=== PATIENT | female | born 1930 | race African-American/Black ===

== ENCOUNTER 2020-12-21 12:48 | Inpatient (IN) | payer MEDICARE, MEDICAID ==
[~2020-12-21] VITALS: Ht 160 cm; Wt 60.8 kg
[~2020-12-21 12:48] MED LIST: HYDR12.54 PO; METO25TA6 PO; MIRT-89 PO
[2020-12-21] MEDS ORDERED: SODIUM CHLORIDE 0.9% 1,000 ML IV ONE (13:15)
[2020-12-21 15:15] LABS: BASOPHILS % 0.5 % (0.0-2.0); EOSINOPHILS % 0.9 % (0.0-5.0); HEMATOCRIT. 34.4 % (36.0-48.0); HEMOGLOBIN. 11.3 g/dL (12.0-16.0); LYMPHOCYTES % 27.8 % (20.0-50.0); MEAN CORPUSCULAR HEMOGLOBIN 30.6 pg (28.0-32.0); MEAN CORPUSCULAR VOLUME 93.3 fL (81.0-99.0); MONOCYTES % 6.7 % (2.0-8.0); NEUTROPHILS % 64.1 % (40.0-76.0); PLATELET 394 x1000/uL (130-400); RED BLOOD CELL COUNT 3.68 mill/uL (4.2-5.4)
[2020-12-21 15:20] LABS: CHLORIDE 106 mEq/L (98-107)
[2020-12-21 16:46] LABS: CLARITY URINE TURBID (CLEAR); COLOR URINE ORANGE (YELLOW); KETONES URINE TRACE (NEGATIVE); LEUKOCYTE ESTERASE URINE 3+ (NEGATIVE); NITRITE URINE POSITIVE (NEGATIVE); OCCULT BLOOD URINE 3+ (NEGATIVE); PH URINE 5.5 (4.5-8.0); PROTEIN URINE 3+ (NEGATIVE); SPECIFIC GRAVITY URINE 1.023 (1.005-1.030)
[2020-12-21] MEDS ORDERED: CEFTRIAXONE 1 G PREMIX 50 ML IV ONE (17:00)
[2020-12-21] MEDS ORDERED: ENOXAPARIN 40MG/0.4ML SYR SUBCUT SCH (18:00)
[2020-12-21] MEDS ORDERED: ENOXAPARIN 30MG/0.3ML SYR SUBCUT SCH (18:00)
[2020-12-21 22:07] VITALS: BP 119/67
[2020-12-22] VITALS: BP_SYST 119; BP_SYST 129; BP_DIAS 67; BP_DIAS 73
[2020-12-22 04:00] VITALS: BP 129/59
[2020-12-22 06:41] LABS: BASOPHILS % 0.7 % (0.0-2.0); EOSINOPHILS % 1.2 % (0.0-5.0); HEMATOCRIT. 33.1 % (36.0-48.0); HEMOGLOBIN. 11.1 g/dL (12.0-16.0); LYMPHOCYTES % 38.2 % (20.0-50.0); MEAN CORPUSCULAR HEMOGLOBIN 31.2 pg (28.0-32.0); MEAN CORPUSCULAR VOLUME 93.4 fL (81.0-99.0); MEAN PLATELET VOLUME 7.3 fl (7.4-10.4); MONOCYTES % 6.9 % (2.0-8.0); PLATELET 397 x1000/uL (130-400); RED BLOOD CELL COUNT 3.54 mill/uL (4.2-5.4)
[2020-12-22 06:50] LABS: CHLORIDE 106 mEq/L (98-107)
[2020-12-22 08:00] VITALS: BP 118/54
[2020-12-22] MEDS: ASPIRIN 81MG EC TABLET PO SCH (08:32)
[2020-12-22] MEDS: ENOXAPARIN 30MG/0.3ML SYR SUBCUT SCH (08:33)
[2020-12-22] MEDS ORDERED: POTASSIUM CHLORIDE 20MEQ TABLET SR PO SCH (09:00)
[2020-12-22] MEDS ORDERED: POTASSIUM CHLORIDE INJ 40 MEQ in DEXT 5% WATER 250 ML IV SCH (10:00)
[2020-12-22 12:00] VITALS: BP 111/61
[2020-12-22 16:00] VITALS: BP 109/69
[2020-12-22] MEDS: CEFTRIAXONE 1,000 MG in DEXTROSE 5% WATER 50 ML IV SCH (17:12)
[2020-12-22] MEDS ORDERED: CEFTRIAXONE 1 G PREMIX 50 ML IV SCH (18:00)
[2020-12-22] MEDS ORDERED: POTASSIUM CHLORIDE 20MEQ TABLET SR PO NR (18:30)
[2020-12-22 20:00] VITALS: BP 152/68
[2020-12-22] MEDS: ATORVASTATIN CALCIUM 10MG TABLET PO SCH (20:46)
[2020-12-22] MEDS: METOPROLOL TARTRATE 25MG TABLET PO SCH (20:47)
[2020-12-23] VITALS: BP 127/94
[2020-12-23 04:00] VITALS: BP 103/64
[2020-12-23 06:34] LABS: CHLORIDE 109 mEq/L (98-107)
[2020-12-23 06:36] LABS: BASOPHILS % 0.8 % (0.0-2.0); EOSINOPHILS % 2.1 % (0.0-5.0); HEMATOCRIT. 31.4 % (36.0-48.0); HEMOGLOBIN. 10.4 g/dL (12.0-16.0); LYMPHOCYTES % 41.9 % (20.0-50.0); MEAN CORPUSCULAR HEMOGLOBIN 30.9 pg (28.0-32.0); MEAN PLATELET VOLUME 7.3 fl (7.4-10.4); MONOCYTES % 4.4 % (2.0-8.0); NEUTROPHILS % 50.8 % (40.0-76.0); PLATELET 366 x1000/uL (130-400); RED BLOOD CELL COUNT 3.38 mill/uL (4.2-5.4); RED CELL DISTRIBUTION WIDTH 21.6 % (11.6-14.6)
[2020-12-23 08:00] VITALS: BP 109/45
[2020-12-23] MEDS: METOPROLOL TARTRATE 25MG TABLET PO SCH (09:00)
[2020-12-23] MEDS: ENOXAPARIN 30MG/0.3ML SYR SUBCUT SCH (09:22)
[2020-12-23] MEDS: ASPIRIN 81MG EC TABLET PO SCH (09:22)
[2020-12-23 12:00] VITALS: BP 110/60
[2020-12-23] MEDS ORDERED: MAGNESIUM 1 G PREMIX 100 ML IV NR (13:00)
[2020-12-23 16:00] VITALS: BP 92/53
[2020-12-23] MEDS: CEFTRIAXONE 1,000 MG in DEXTROSE 5% WATER 50 ML IV SCH (18:00)
[2020-12-23] MEDS ORDERED: METOPROLOL TARTRATE 25MG TABLET PO SCH (21:00)
[2020-12-23] MEDS: NITROFURANTOIN 100MG M/M CAPSULE PO SCH (22:11)
[2020-12-23] MEDS: ATORVASTATIN CALCIUM 10MG TABLET PO SCH (22:12)
[2020-12-24] VITALS: BP 136/78
[2020-12-24 04:00] VITALS: BP 143/85
[2020-12-24 08:00] VITALS: BP 142/79
[2020-12-24 08:17] LABS: BASOPHILS % 0.5 % (0.0-2.0); EOSINOPHILS % 1.4 % (0.0-5.0); HEMATOCRIT. 28.2 % (36.0-48.0); HEMOGLOBIN. 9.3 g/dL (12.0-16.0); LYMPHOCYTES % 38.8 % (20.0-50.0); MEAN CORPUSCULAR HEMOGLOBIN 30.9 pg (28.0-32.0); MEAN CORPUSCULAR VOLUME 93.3 fL (81.0-99.0); MEAN PLATELET VOLUME 7.5 fl (7.4-10.4); MONOCYTES % 11.3 % (2.0-8.0); PLATELET 336 x1000/uL (130-400); RED BLOOD CELL COUNT 3.02 mill/uL (4.2-5.4); RED CELL DISTRIBUTION WIDTH 22.1 % (11.6-14.6)
[2020-12-24 08:38] LABS: CHLORIDE 108 mEq/L (98-107)
[2020-12-24] MEDS: ASPIRIN 81MG EC TABLET PO SCH (08:47)
[2020-12-24] MEDS: NITROFURANTOIN 100MG M/M CAPSULE PO SCH ×2 (08:47→21:38)
[2020-12-24] MEDS: ENOXAPARIN 30MG/0.3ML SYR SUBCUT SCH (08:47)
[2020-12-24] MEDS ORDERED: POTASSIUM CHLORIDE 20MEQ TABLET SR PO NR (09:30)
[2020-12-24] MEDS ORDERED: MAGNESIUM OXIDE 400MG TABLET PO NR (10:00)
[2020-12-24 12:00] VITALS: BP 133/69
[2020-12-24 16:00] VITALS: BP 124/69
[2020-12-24 20:00] VITALS: BP 131/87
[2020-12-24] MEDS: ATORVASTATIN CALCIUM 10MG TABLET PO SCH (21:37)
[2020-12-24] MEDS: METOPROLOL TARTRATE 25MG TABLET PO SCH (21:38)
[2020-12-25] VITALS: BP 113/64
[2020-12-25 04:00] VITALS: BP 133/68
[2020-12-25 05:50] LABS: PLATELET ESTIMATE NORMAL
[2020-12-25 07:29] LABS: CHLORIDE 105 mEq/L (98-107)
[2020-12-25 08:00] VITALS: BP 136/87
[2020-12-25] MEDS: ENOXAPARIN 30MG/0.3ML SYR SUBCUT SCH (10:33)
[2020-12-25] MEDS: ASPIRIN 81MG EC TABLET PO SCH (10:33)
[2020-12-25] MEDS: NITROFURANTOIN 100MG M/M CAPSULE PO SCH ×2 (10:33→20:27)
[2020-12-25] MEDS: METOPROLOL TARTRATE 25MG TABLET PO SCH ×2 (10:34→20:28)
[2020-12-25 12:00] VITALS: BP 137/83
[2020-12-25 16:00] VITALS: BP 132/75
[2020-12-25 20:00] VITALS: BP 129/69
[2020-12-25] MEDS: ATORVASTATIN CALCIUM 10MG TABLET PO SCH (20:27)
[2020-12-26] VITALS: BP 138/66
[2020-12-26 04:00] VITALS: BP 130/67
[2020-12-26 08:00] VITALS: BP 130/95
[2020-12-26] MEDS: METOPROLOL TARTRATE 25MG TABLET PO SCH ×2 (08:50→21:00)
[2020-12-26] MEDS: ASPIRIN 81MG EC TABLET PO SCH (08:51)
[2020-12-26] MEDS: NITROFURANTOIN 100MG M/M CAPSULE PO SCH ×2 (08:51→21:17)
[2020-12-26] MEDS: ENOXAPARIN 30MG/0.3ML SYR SUBCUT SCH (08:51)
[2020-12-26 12:00] VITALS: BP 135/95
[2020-12-26] MEDS: ACETAMINOPHEN 325MG TABLET PO PRN (12:52)
[2020-12-26 16:00] VITALS: BP 148/58
[2020-12-26 20:00] VITALS: BP 106/54
[2020-12-26] MEDS: ATORVASTATIN CALCIUM 10MG TABLET PO SCH (21:17)
[2020-12-27] VITALS: BP 118/66
[2020-12-27 04:00] VITALS: BP 107/59
[2020-12-27 08:00] VITALS: BP 155/74
[2020-12-27] MEDS: NITROFURANTOIN 100MG M/M CAPSULE PO SCH ×2 (08:55→21:40)
[2020-12-27] MEDS: ASPIRIN 81MG EC TABLET PO SCH (08:55)
[2020-12-27] MEDS: ENOXAPARIN 30MG/0.3ML SYR SUBCUT SCH (08:56)
[2020-12-27] MEDS: METOPROLOL TARTRATE 25MG TABLET PO SCH ×2 (08:58→21:00)
[2020-12-27 16:00] VITALS: BP 134/69
[2020-12-27] MEDS: AMLODIPINE 2.5MG TABLET PO SCH (16:52)
[2020-12-27] MEDS ORDERED: NITR100C11 PO (18:23)
[2020-12-27] MEDS ORDERED: ASPI-1406 PO (18:23)
[2020-12-27] MEDS ORDERED: AMLO2.5T45 PO (18:23)
[2020-12-27] MEDS ORDERED: METO25TA6 PO (18:23)
[2020-12-27] MEDS ORDERED: ATOR10TA PO (18:23)
[2020-12-27 20:00] VITALS: BP 108/86
[2020-12-27] MEDS: ATORVASTATIN CALCIUM 10MG TABLET PO SCH (21:40)
[2020-12-27] MEDS: ACETAMINOPHEN 325MG TABLET PO PRN (23:17)
[2020-12-28] VITALS: BP 122/71
[2020-12-28 04:00] VITALS: BP 106/69
[2020-12-28] MEDS: METOPROLOL TARTRATE 25MG TABLET PO SCH ×2 (09:00→21:00)
[2020-12-28] MEDS: AMLODIPINE 2.5MG TABLET PO SCH (09:00)
[2020-12-28] MEDS: NITROFURANTOIN 100MG M/M CAPSULE PO SCH ×2 (09:28→21:00)
[2020-12-28] MEDS: ASPIRIN 81MG EC TABLET PO SCH (09:28)
[2020-12-28] MEDS: ENOXAPARIN 30MG/0.3ML SYR SUBCUT SCH (09:29)
[2020-12-28 12:00] VITALS: BP 118/65
[2020-12-28 16:00] VITALS: BP 149/83
[2020-12-28 16:19] VITALS: BP_SYST 118; BP_SYST 125; BP_DIAS 65; BP_DIAS 69
[2020-12-28 20:00] VITALS: BP 100/72
[2020-12-28] MEDS: ATORVASTATIN CALCIUM 10MG TABLET PO SCH (21:00)
[2020-12-29] VITALS: BP 154/76
[2020-12-29 04:00] VITALS: BP 159/78
[2020-12-29 08:00] VITALS: BP 133/74
[2020-12-29] MEDS: METOPROLOL TARTRATE 25MG TABLET PO SCH (08:57)
[2020-12-29] MEDS: AMLODIPINE 2.5MG TABLET PO SCH (08:57)
[2020-12-29] MEDS: ASPIRIN 81MG EC TABLET PO SCH (08:57)
[2020-12-29] MEDS: ENOXAPARIN 30MG/0.3ML SYR SUBCUT SCH (08:58)
[2020-12-29 12:00] VITALS: BP 125/69
== END 2020-12-29 16:15 | DRG 689 ==
LOC: ER 13:02 → MICUSO 17:17 → 7EST 19:51
PROVIDERS: ADMIT Family Medicine Adult Medicine; ATTEND Family Medicine Adult Medicine
DX: N39.0 Urinary tract infection, site not specified (principal); L89.153 Pressure ulcer of sacral region, stage 3; E43 Unspecified severe protein-calorie malnutrition; E87.0 Hyperosmolality and hypernatremia; R78.81 Bacteremia; E46 Unspecified protein-calorie malnutrition; Z16.23 Resistance to quinolones and fluoroquinolones; R65.10 Systemic inflammatory response syndrome (SIRS) of non-infectious origin without acute organ dysfunction; I95.89 Other hypotension; E11.9 Type 2 diabetes mellitus without complications; E83.51 Hypocalcemia; E87.6 Hypokalemia; F03.90 Unspecified dementia, unspecified severity, without behavioral disturbance, psychotic disturbance, mood disturbance, and anxiety; E83.42 Hypomagnesemia; R00.1 Bradycardia, unspecified; I10 Essential (primary) hypertension; B96.20 Unspecified Escherichia coli [E. coli] as the cause of diseases classified elsewhere; I48.91 Unspecified atrial fibrillation; Z86.73 Personal history of transient ischemic attack (TIA), and cerebral infarction without residual deficits; Z79.899 Other long term (current) drug therapy; Z68.23 Body mass index [BMI] 23.0-23.9, adult
CPT/HCPCS: 36415; 71045; 80048; 80053; 81003; 82040; 82962; 83735; 84132; 84134; 84484; 85025; 87077; 87186; 97162; 97166; 99285; C1893; J0696; J1650; J3475; J3480; J7030; J7060; A4315

== ENCOUNTER 2021-06-13 19:41 | Inpatient (IN) | payer MEDICARE, MEDICAID ==
[~2021-06-13] VITALS: Ht 154.9 cm; Wt 49.9 kg
[~2021-06-13 19:41] MED LIST changes: +AMLO2.5T45 PO; +ASPI-1406 PO; +ATOR10TA PO; -HYDR12.54 PO; -MIRT-89 PO
[2021-06-13] MEDS ORDERED: TETANUS, DIPHTHERIA, PERTUSSIS VAC/PF 0.5ML (>10YR OLD) IM ONE (21:00)
[2021-06-13 21:12] LABS: BASOPHILS % 0.5 % (0.0-2.0); EOSINOPHILS % 1.6 % (0.0-5.0); HEMATOCRIT. 27.6 % (36.0-48.0); HEMOGLOBIN. 9.3 g/dL (12.0-16.0); MEAN CORPUSCULAR HEMOGLOBIN 32.2 pg (28.0-32.0); MEAN CORPUSCULAR VOLUME 95.9 fL (81.0-99.0); MEAN PLATELET VOLUME 6.7 fl (7.4-10.4); MONOCYTES % 10.2 % (2.0-8.0); NEUTROPHILS % 38.7 % (40.0-76.0); PLATELET 290 x1000/uL (130-400); RED BLOOD CELL COUNT 2.88 mill/uL (4.2-5.4); RED CELL DISTRIBUTION WIDTH 16.5 % (11.6-14.6)
[2021-06-13 21:19] LABS: CHLORIDE 111 mEq/L (98-107)
[2021-06-14 00:23] LABS: CLARITY URINE CLEAR (CLEAR); COLOR URINE YELLOW (YELLOW); KETONES URINE NEGATIVE (NEGATIVE); LEUKOCYTE ESTERASE URINE 3+ (NEGATIVE); NITRITE URINE NEGATIVE (NEGATIVE); OCCULT BLOOD URINE TRACE (NEGATIVE); PH URINE 7.5 (4.5-8.0); PROTEIN URINE NEGATIVE (NEGATIVE); SPECIFIC GRAVITY URINE 1.012 (1.005-1.030); UROBILINOGEN URINE 0.2 E.U./dL (0.2-1.0)
[2021-06-14] MEDS ORDERED: NITR-87 MT (00:33)
[2021-06-14] MEDS ORDERED: CEFTRIAXONE 1 G PREMIX 50 ML IV ONE (02:45)
[2021-06-14] MEDS ORDERED: NICARDIPINE 100 MG in SODIUM CHLORIDE 0.9% 60 ML IV PRN ×4 (08:15)
[2021-06-14] MEDS ORDERED: ACETAMINOPHEN 650MG SUPP PR PRN ×2 (09:45)
[2021-06-14] MEDS ORDERED: IPRATROPIUM/ALBUTEROL 0.5-3(2.5)MG/3ML NEB HHN PRN (09:45)
[2021-06-14] MEDS ORDERED: ONDANSETRON HCL 4MG/2ML INJ IV PRN (09:45)
[2021-06-14] MEDS ORDERED: MAGNESIUM/ALUMINUM HYDROXIDE/SIMETHICONE 30ML UDC PO PRN (09:45)
[2021-06-14] MEDS ORDERED: CLONIDINE 0.1MG TABLET PO PRN (09:45)
[2021-06-14] MEDS ORDERED: ACETAMINOPHEN 325MG TABLET PO PRN ×2 (09:45)
[2021-06-14] MEDS ORDERED: DOCUSATE SODIUM 100MG CAPSULE PO PRN (09:45)
[2021-06-14 10:10] VITALS: BP 131/77
[2021-06-14 12:00] VITALS: BP 155/76
[2021-06-14] MEDS ORDERED: AMLO2.5T45 PO (13:37)
[2021-06-14] MEDS ORDERED: ATOR10TA69 PO (13:37)
[2021-06-14] MEDS ORDERED: FOLI-43 PO (13:46)
[2021-06-14] MEDS ORDERED: VIT1CAPS26 PO (13:46)
[2021-06-14] MEDS ORDERED: HYDR-4001 PO (13:46)
[2021-06-14] MEDS ORDERED: METO25TA6 PO (13:46)
[2021-06-14] MEDS ORDERED: ACET-2708 PO (13:46)
[2021-06-14] MEDS ORDERED: TOPUD PO (13:46)
[2021-06-14] MEDS ORDERED: FERR220S6 PO (13:46)
[2021-06-14] MEDS ORDERED: ZINC220C6 PO (13:46)
[2021-06-14 16:00] VITALS: BP 142/70
[2021-06-14 16:20] LABS: BASOPHILS % 0.4 % (0.0-2.0); EOSINOPHILS % 1.1 % (0.0-5.0); HEMATOCRIT. 31.1 % (36.0-48.0); HEMOGLOBIN. 10.4 g/dL (12.0-16.0); LYMPHOCYTES % 40.8 % (20.0-50.0); MEAN CORPUSCULAR HEMOGLOBIN 32.5 pg (28.0-32.0); MEAN PLATELET VOLUME 7.2 fl (7.4-10.4); MONOCYTES % 10.1 % (2.0-8.0); NEUTROPHILS % 47.6 % (40.0-76.0); PLATELET 289 x1000/uL (130-400); RED CELL DISTRIBUTION WIDTH 16.5 % (11.6-14.6)
[2021-06-14 16:34] LABS: PARTIAL THROMBOPLASTIN TIME 36.9 sec (23.4-31.0); PROTHROMBIN TIME 11.2 sec (9.6-11.0)
[2021-06-14 16:40] LABS: CHLORIDE 109 mEq/L (98-107)
[2021-06-14 16:49] LABS: CREATINE KINASE 145 IU/L (26-192)
[2021-06-14] MEDS ORDERED: CEFTRIAXONE 2 G in DEXTROSE 5% WATER 50 ML IV SCH (18:00)
[2021-06-14 20:00] VITALS: BP 126/107
[2021-06-14] MEDS: HALOPERIDOL LACTATE 5MG/ML VIAL IM PRN (22:01)
[2021-06-15] VITALS: BP 143/72
[2021-06-15 04:00] VITALS: BP 131/77
[2021-06-15 06:30] LABS: BASOPHILS % 0.3 % (0.0-2.0); EOSINOPHILS % 0.6 % (0.0-5.0); HEMATOCRIT. 31.6 % (36.0-48.0); HEMOGLOBIN. 10.6 g/dL (12.0-16.0); LYMPHOCYTES % 23.3 % (20.0-50.0); MEAN CORPUSCULAR HEMOGLOBIN 31.8 pg (28.0-32.0); MEAN CORPUSCULAR VOLUME 95.2 fL (81.0-99.0); MEAN PLATELET VOLUME 7.1 fl (7.4-10.4); MONOCYTES % 7.2 % (2.0-8.0); NEUTROPHILS % 68.6 % (40.0-76.0); PLATELET 320 x1000/uL (130-400); RED BLOOD CELL COUNT 3.32 mill/uL (4.2-5.4); RED CELL DISTRIBUTION WIDTH 16.2 % (11.6-14.6)
[2021-06-15 06:55] LABS: CHLORIDE 109 mEq/L (98-107)
[2021-06-15 07:08] LABS: LDL CHOLESTEROL 84 mg/dL (5-100)
[2021-06-15 07:10] LABS: HDL CHOLESTEROL 60 mg/dL (40-59); T4 FREE 1.33 ng/dL (0.76-1.46)
[2021-06-15 07:18] LABS: VITAMIN B12 SERUM 746 pg/mL (211-911)
[2021-06-15 08:24] VITALS: BP 135/75
[2021-06-15 12:00] VITALS: BP 130/59
[2021-06-15 16:00] VITALS: BP 117/53
[2021-06-15] MEDS: CEFTRIAXONE 1,000 MG in DEXTROSE 5% WATER 50 ML IV SCH (17:31)
[2021-06-15 20:00] VITALS: BP 155/73
[2021-06-16] VITALS: BP 144/71
[2021-06-16 03:40] VITALS: BP 133/69
[2021-06-16 08:00] VITALS: BP 104/68
[2021-06-16 10:27] LABS: BASOPHILS % 0.6 % (0.0-2.0); EOSINOPHILS % 2.1 % (0.0-5.0); HEMATOCRIT. 31.8 % (36.0-48.0); HEMOGLOBIN. 10.5 g/dL (12.0-16.0); MEAN CORPUSCULAR HEMOGLOBIN 31.7 pg (28.0-32.0); MEAN CORPUSCULAR VOLUME 95.8 fL (81.0-99.0); MEAN PLATELET VOLUME 7.3 fl (7.4-10.4); MONOCYTES % 10.6 % (2.0-8.0); NEUTROPHILS % 50.7 % (40.0-76.0); PLATELET 322 x1000/uL (130-400); RED BLOOD CELL COUNT 3.32 mill/uL (4.2-5.4); RED CELL DISTRIBUTION WIDTH 16.2 % (11.6-14.6)
[2021-06-16 10:33] LABS: CHLORIDE 111 mEq/L (98-107)
[2021-06-16 12:00] VITALS: BP 127/52
[2021-06-16 16:00] VITALS: BP 114/63
[2021-06-16] MEDS: CEFTRIAXONE 1,000 MG in DEXTROSE 5% WATER 50 ML IV SCH (16:47)
[2021-06-16 20:00] VITALS: BP 143/56
[2021-06-16] MEDS: HALOPERIDOL LACTATE 5MG/ML VIAL IM PRN (21:44)
[2021-06-17] VITALS: BP 139/71
[2021-06-17 04:00] VITALS: BP 127/65
[2021-06-17 08:00] VITALS: BP 113/55
[2021-06-17 11:47] VITALS: BP 113/55
[2021-06-17 12:00] VITALS: BP 121/65
[2021-06-17 16:00] VITALS: BP 115/58
[2021-06-17] MEDS: CEFTRIAXONE 1,000 MG in DEXTROSE 5% WATER 50 ML IV SCH (18:50)
== END 2021-06-17 21:30 | DRG 85 ==
LOC: ER 19:41 → 8WST 06-14 04:08 → EDBEDREQTM 06-14 04:21 → EDBEDREQSVC 06-14 04:21 → EDBEDREQ 06-14 04:21
PROVIDERS: ADMIT Family Medicine Adult Medicine; ATTEND Family Medicine Adult Medicine
DX: S06.5X0A Traumatic subdural hemorrhage without loss of consciousness, initial encounter (principal); G93.41 Metabolic encephalopathy; N39.0 Urinary tract infection, site not specified; D64.9 Anemia, unspecified; E11.9 Type 2 diabetes mellitus without complications; E78.5 Hyperlipidemia, unspecified; I11.0 Hypertensive heart disease with heart failure; S01.81XA Laceration without foreign body of other part of head, initial encounter; G30.9 Alzheimer's disease, unspecified; F02.80 Dementia in other diseases classified elsewhere, unspecified severity, without behavioral disturbance, psychotic disturbance, mood disturbance, and anxiety; Z20.822 Contact with and (suspected) exposure to COVID-19; I48.91 Unspecified atrial fibrillation; Z96.643 Presence of artificial hip joint, bilateral; I50.9 Heart failure, unspecified; W06.XXXA Fall from bed, initial encounter; Z86.73 Personal history of transient ischemic attack (TIA), and cerebral infarction without residual deficits; Y93.9 Activity, unspecified; Y92.122 Bedroom in nursing home as the place of occurrence of the external cause; Y99.8 Other external cause status; Z79.82 Long term (current) use of aspirin; Z79.899 Other long term (current) drug therapy
CPT/HCPCS: 36415; 71045; 72170; 80048; 80053; 80061; 81003; 82550; 82607; 82962; 83036; 83735; 84439; 84443; 84484; 85025; 87426; 90715; 93005; 97162; 97166; 97530; 97535; 99291; J0696; J1630; J7060